=== PATIENT | female | born 1935 | race Caucasian/White ===

== ENCOUNTER 2018-03-24 16:34 | Emergency (ER) | payer MEDICARE, MEDICAID ==
[2018-03-24] MEDS ORDERED: Ibuprofen 200 MG TAB ONE (17:40)
--- NOTE | 2018-03-24 18:03 | RAD ---
LEFT WRIST THREE VIEWS: 03/24/18 HISTORY: Fall, left wrist pain. FINDINGS/IMPRESSION: There is a fracture involving the distal radius with minimal displacement. There is also fracture inv olving the ulnar styloid. POS: [place]
== END 2018-03-24 19:12 | disposition home or self-care (01) ==
LOC: ERS 16:34
DX: S52.502A Unspecified fracture of the lower end of left radius, initial encounter for closed fracture (principal); Y93.02 Activity, running; E11.9 Type 2 diabetes mellitus without complications; E03.9 Hypothyroidism, unspecified; E78.5 Hyperlipidemia, unspecified; I10 Essential (primary) hypertension; Z79.82 Long term (current) use of aspirin; Z79.84 Long term (current) use of oral hypoglycemic drugs; Z79.899 Other long term (current) drug therapy; W18.30XA Fall on same level, unspecified, initial encounter
CPT/HCPCS: 29125

== ENCOUNTER 2019-01-12 10:20 | Emergency (ER) | payer MEDICARE, MEDICAID ==
--- NOTE | 2019-01-12 11:04 | RAD ---
2 VIEWS LEFT HIP: Date: 01/12/19 INDICATION: Fall with left hip pain. FINDINGS: There is mild degenerative arthrosis of the left hip. There is degenerative changes involving the lef t SI joint. There is diffuse osteopenia. There is prominent soft tissue swelling overlying the left h ip. IMPRESSION: No definite displaced fracture seen. Large left hip soft tissue hematoma. POS: [facility]
== END 2019-01-12 11:42 | disposition home or self-care (01) ==
LOC: ERS 10:20
DX: S70.02XA Contusion of left hip, initial encounter (principal); F03.90 Unspecified dementia, unspecified severity, without behavioral disturbance, psychotic disturbance, mood disturbance, and anxiety; F17.220 Nicotine dependence, chewing tobacco, uncomplicated; E78.5 Hyperlipidemia, unspecified; I10 Essential (primary) hypertension; Z79.899 Other long term (current) drug therapy; Z79.82 Long term (current) use of aspirin; Z79.84 Long term (current) use of oral hypoglycemic drugs; W01.0XXA Fall on same level from slipping, tripping and stumbling without subsequent striking against object, initial encounter

== ENCOUNTER 2020-09-16 20:59 | Inpatient (IN) | payer MEDICARE, MEDICAID ==
--- NOTE | 2020-09-16 21:37 | RAD ---
Portable upright frontal chest radiograph: 09/16/2020 COMPARISON: 06/08/2018 HISTORY: Dyspnea, desaturation FINDINGS: Inspiration is shallow. There is elevation of the right hemidiaphragm. There are postoperat celeste clips in the right upper quadrant. There is increased linear interstitial density in the perihilar regions and left lung base with patch y nonspecific right basilar airspace disease suggesting nonspecific infectious pneumonitis or aspiration. Covid 19 cannot be excluded in the proper clinical setting. IMPRESSION: Linear interstitial density in the perihilar regions with superimposed nonspecific left b asilar airspace disease. Recommend follow-up imaging following treatment. Please see above discussion.
[2020-09-16 21:44] LABS: #Lymphocytes 2.1 thou/uL (1.20-3.40); #Monocytes 0.1 thou/uL (0.11-0.59); %Basophils 0.5 % (0.0-1.0); %Eosinophils 0.1 % (0.0-10.0); %Lymphocytes 25.4 % (21.0-51.0); %Monocytes 1.3 % (0.0-10.0); %Neutrophils 72.7 % (42.0-75.0); Hemoglobin 11.5 g/dL (12.0-16.0); Mean Corpuscular HGB CONC 31.5 g/dL (32.0-36.0); Mean Platelet Volume 8.2 fL (7.4-10.4); Platelet Count 145 thou/uL (130-400); RBC Distribution Width 14.4 % (11.5-14.5); White Blood Cell (WBC) Count 8.2 thou/uL (4.8-10.8)
[2020-09-16 21:50] LABS: INR-International Normal Ratio 1.2; PTT 30.5 sec (22.9-36.1); Prothrombin Time 15.3 sec (12.0-14.7)
[2020-09-16 22:13] LABS: ALT (SGPT) 37 U/L (8-55); AST (SGOT) 57 U/L (5-34); Albumin 3.2 g/dL (3.4-4.8); Alkaline Phosphatase 104 U/L (40-110); Anion Gap 19 mmol/L (10-20); BUN (Urea Nitrogen) 46 mg/dL (9.8-20.1); Bilirubin, Total 0.3 mg/dL (0.2-1.2); Calc. Creatinine Clearance 0 mL/min (70-130); Calcium 8.8 mg/dL (7.8-10.44); Carbon Dioxide 24 mmol/L (23-31); Chloride 117 mmol/L (98-107); Globulin 4.1 g/dL (2.4-3.5); Glucose 327 mg/dL (83-110); Protein, Total 7.3 g/dL (6.0-8.3); Sodium 156 mmol/L (136-145)
[2020-09-16] MEDS ORDERED: cefTRIAXone\\ROCEPHIN 1 GM VIAL ONE (22:14)
[2020-09-16 22:23] LABS: Bacteria/HPF 4+ HPF (None Seen); Bilirubin Negative (Negative); Blood, Urine Trace (Negative); Clarity Turbid (Clear); Glucose, Urine (Dipstick) Normal (Negative); Ketone, Urine Negative (Negative); Leukocyte 500 Leu/uL (Negative); Nitrite Negative (Negative); Protein, Urine (Dipstick) 100 mg/dL (Neg-Trace); RBC/HPF 21-50 HPF (0-3); Squamous Epithelial 0-3 HPF (0-3); Transitional Epithelial 0-3 HPF (None Seen); Urobilinogen Normal mg/dL (Less than 2); WBC/HPF Greater than 50 HPF (0-3); pH, Urine 5.5 (5.0-9.0)
[2020-09-16 22:32] LABS: CKMB 0.6 ng/mL (0-6.6)
[2020-09-17] MEDS ORDERED: Azithromycin 500 MG VIAL ONE (00:35)
[2020-09-17 01:10] LABS: Lactic Acid 3.3 mmol/L (0.5-2.2)
[2020-09-17] MEDS ORDERED: Dextrose 50% Abboject 50 ML SYRINGE SLOW IVP PRN (04:11)
[2020-09-17] MEDS ORDERED: Dextrose 5% in Water 1,000 ML IV PRN (04:11)
--- NOTE | 2020-09-17 05:07 | HP ---
REASON FOR ADMISSION: Increased oxygen demand. HISTORY OF PRESENT ILLNESS: This is an 85-year-old female patient, who is a retirement resident and has severe Alzheimer disease, was sent from the retirement because she is requiring more oxygen. She is known to have COVID-19. The patient is nonverbal, unable to provide much information, once she arrived to the ER, she was tachycardic and on a non-rebreather. The patient is at baseline fairly responsive. She was admitted to the COVID unit. When I went to see her, she appeared to be comfortable, though requiring high-flow oxygen, did not appear tachypneic. PAST MEDICAL HISTORY: 1. Dysphagia. 2. Alzheimer disease. 3. Diabetes. 4. Anxiety disorder. 5. High cholesterol. 6. Hypothyroidism. 7. High blood pressure. SOCIAL HISTORY: Unable to obtain due to her dementia. FAMILY HISTORY: Unable to obtain. REVIEW OF SYSTEMS: Unable to obtain. PHYSICAL EXAMINATION: GENERAL: She is awake. She does not appear in distress, but she is nonverbal. VITAL SIGNS: Her blood pressure is 141/81, heart rate of 104, saturating 96% on 40 L high-flow oxygen, 80% FiO2. HEENT: Head is nontraumatic, normocephalic. Pupils are equal and reactive. Extraocular movements are intact. Nonicteric sclerae. Well-injected conjunctivae. Oral mucosa normal. Nasal mucosa normal. NECK: Supple. No adenopathy. No murmur. Thyroid is not palpable. Trachea is midline. No supraclavicular adenopathy. HEART: S1 and S2, regular. No murmur. No gallops. No friction rubs. No displacement on PMI. LUNGS: Poor inspiratory effort. ABDOMEN: Bowel sounds are positive. Nontender abdomen. EXTREMITIES: No lower extremity edema. No cyanosis. NEURO: Unable to fully assess. LABORATORY DATA: Blood work shows WBC of 8.2; hemoglobin 11.5, previously 9.7 in 2019; MCV 102. INR 1.2. Sodium 156, potassium 4, bicarb of 24. BUN of 46; creatinine 1.63, three years ago creatinine was 0.68. Troponin 0.047. Urinalysis positive for infection. A chest x-ray shows linear interstitial density in the perihilar regions with superimposed nonspecific left basilar airspace disease. EKG shows sinus tachycardia per my read. ASSESSMENT AND PLAN: This is an 85-year-old female patient, presenting with increased need for oxygen. She is known to have COVID-19, most likely she has COVID pneumonia. Also, she is hypernatremic, most likely due to poor fluid intake and also she has urinary tract infection. Neurology: The patient has severe advanced Alzheimer disease. Continue to monitor from that standpoint. Pulmonary: The patient most likely has COVID pneumonia. We will have her on IV Decadron. For her UTI, she will be on IV Rocephin. For her hypernatremia, we will start her on half NS, recheck her sodium later on, and adjust accordingly. For DVT prophylaxis, she will be on heparin subcutaneously. For her diabetes, she will be on insulin sliding scale. The patient does have an out of the hospital do not resuscitate. We will continue with that order. Job ID: [id number]
[2020-09-17] MEDS: Sodium Chloride 0.45% 1,000 ML IV SCH ×2 (05:51→17:34)
[2020-09-17] MEDS: Insulin Regular 300 UNITS/3 ML VIAL SC PRN (06:58)
[2020-09-17 08:36] LABS: Anion Gap 13 mmol/L (10-20); BUN (Urea Nitrogen) 38 mg/dL (9.8-20.1); Calc. Creatinine Clearance 30 mL/min (70-130); Carbon Dioxide 24 mmol/L (23-31); Chloride 121 mmol/L (98-107); Glucose 363 mg/dL (83-110); Potassium 3.5 mmol/L (3.5-5.1); Sodium 154 mmol/L (136-145)
[2020-09-17 08:45] LABS: Troponin I 0.052 ng/mL (< 0.028)
[2020-09-17 08:52] LABS: MDiff Complete? YES; Platelet Morphology Comment Appears Adequate; Polychromasia SLIGHT = 2-3 cells (100X) (0-2/hpf)
[2020-09-17 08:53] LABS: #Basophils 0.1 thou/uL (0.0-0.2); #Lymphocytes 1.4 thou/uL (1.20-3.40); #Monocytes 0.1 thou/uL (0.11-0.59); #Neutrophils 6.4 thou/uL (1.40-6.50); %Basophils 1.2 % (0.0-1.0); %Eosinophils 0.2 % (0.0-10.0); %Lymphocytes 17.2 % (21.0-51.0); %Monocytes 1.5 % (0.0-10.0); %Neutrophils 79.8 % (42.0-75.0); Hemoglobin 9.4 g/dL (12.0-16.0); Mean Corpuscular HGB CONC 31.1 g/dL (32.0-36.0); Mean Corpuscular Hemoglobin 31.2 pg (27.0-31.0); Mean Platelet Volume 7.9 fL (7.4-10.4); Platelet Count 119 thou/uL (130-400); RBC Distribution Width 14.4 % (11.5-14.5); Red Blood Cell (RBC) Count 3.02 mill/uL (4.20-5.40); White Blood Cell (WBC) Count 8.1 thou/uL (4.8-10.8)
[2020-09-17] MEDS ORDERED: Enoxaparin Sodium 40 MG/0.4 ML SYRINGE SC SCH (09:00)
[2020-09-17] MEDS: Heparin 5,000 UNITS/ML VIAL SC SCH ×2 (09:34→22:00)
[2020-09-17] MEDS: Dexamethasone 4 mg/ml Vial SLOW IVP SCH (09:34)
[2020-09-17] MEDS ORDERED: D5W-AA 4.25% with LYTES 1,000 ML BAG IV SCH (20:00)
[2020-09-17] MEDS ORDERED: Famotidine/PF 20 mg/2ml Vial SLOW IVP SCH (21:00)
[2020-09-17] MEDS: cefTRIAXone\\ROCEPHIN 1 GM in Sodium Chloride 0.9% 100 ML IVPB SCH (22:00)
[2020-09-17] MEDS ORDERED: Acetaminophen 325 MG TAB PO PRN (22:41)
[2020-09-17] MEDS ORDERED: Acetaminophen 650 MG Suppository PR PRN (22:41)
[2020-09-17] MEDS ORDERED: Acetaminophen 650 MG/20.3 ML UDCUP PO PRN (22:41)
[2020-09-18 00:10] VITALS: BP 133/81
--- NOTE | 2020-09-18 01:18 | PDOC.EVN ---
Event Note - Event Note Event Note: Nursing called, patient tachypneic and hypoxic, Sp02 low 80s, high 70s on high flow NC. Will place order for bipap, STAT ABG and transfer to IMCU.
[2020-09-18 01:42] LABS: Actual Bicarbonate (HCO3a) 17.1 mEq/L (22-28); Analyzer IN Cardio OR; Base Excess (BEa) -7.1 mEq/L (-2.0 to +3.0); CO2 Tension 30.4 mmHg (35.0-45.0); Carboxyhemoglobin (COHb) 0.1 gm% (0.0-3.0); Hemoglobin (Hb) 10.7 g/dL (12.0-16.0); Potassium - ABG Lab 3.88 mmol/L (3.70-5.30); pH, Arterial 7.37 (7.35-7.45)
[2020-09-18 01:44] LABS: O2 Tension (PaO2), arterial 52.3 mmHg (> 60.0)
[2020-09-18 01:45] LABS: Puncture Site RRA
[2020-09-18] MEDS ORDERED: Morphine 2 MG/ML VIAL SLOW IVP SCH (02:00)
[2020-09-18] MEDS ORDERED: Lorazepam 2 MG/ML VIAL SLOW IVP SCH (02:30)
[2020-09-18 04:18] LABS: Hemoglobin A1c 8.3 % (4.0-6.0)
[2020-09-18 04:22] LABS: #Monocytes 0.2 thou/uL (0.11-0.59); #Neutrophils 10.3 thou/uL (1.40-6.50); %Basophils 0.1 % (0.0-1.0); %Eosinophils 0.1 % (0.0-10.0); %Lymphocytes 8.6 % (21.0-51.0); %Monocytes 1.7 % (0.0-10.0); %Neutrophils 89.6 % (42.0-75.0); Mean Corpuscular HGB CONC 31.8 g/dL (32.0-36.0); Mean Corpuscular Hemoglobin 31.4 pg (27.0-31.0); Mean Corpuscular Volume 98.8 fL (78.0-98.0); Mean Platelet Volume 8.6 fL (7.4-10.4); Platelet Count 119 thou/uL (130-400); RBC Distribution Width 14.4 % (11.5-14.5); Red Blood Cell (RBC) Count 3.18 mill/uL (4.20-5.40); White Blood Cell (WBC) Count 11.5 thou/uL (4.8-10.8)
[2020-09-18 04:29] LABS: Anion Gap 17 mmol/L (10-20); Carbon Dioxide 20 mmol/L (23-31); Chloride 119 mmol/L (98-107); Potassium 4.3 mmol/L (3.5-5.1); Sodium 152 mmol/L (136-145)
[2020-09-18 04:30] LABS: ALT (SGPT) 35 U/L (8-55); AST (SGOT) 55 U/L (5-34); Albumin 2.8 g/dL (3.4-4.8); Alkaline Phosphatase 97 U/L (40-110); BUN (Urea Nitrogen) 42 mg/dL (9.8-20.1); Bilirubin, Total 0.2 mg/dL (0.2-1.2); Calc. Creatinine Clearance 28 mL/min (70-130); Calcium 8.5 mg/dL (7.8-10.44); Globulin 3.6 g/dL (2.4-3.5); Glucose 422 mg/dL (83-110); Magnesium 1.9 mg/dL (1.6-2.6); Phosphorus 2.8 mg/dL (2.3-4.7); Protein, Total 6.4 g/dL (6.0-8.3)
[2020-09-18 05:32] LABS: SARS-CoV-2 by NAA DETECTED (NotDetected)
[2020-09-18 05:33] LABS: SARS-CoV-2 MS2 Positive; SARS-CoV-2 N Gene Positive; SARS-CoV-2 S Gene Positive; SARS-CoV-2 orf1ab Positive
[2020-09-18] MEDS: Insulin Regular 300 UNITS/3 ML VIAL SC PRN ×2 (06:08→13:36)
[2020-09-18] MEDS ORDERED: Bisacodyl 10 MG SUPP PR PRN (07:49)
[2020-09-18] MEDS ORDERED: Cepastat Lozenges 1 LOZ PO PRN (07:49)
[2020-09-18] MEDS ORDERED: Ondansetron PF 4 MG/2 ML Vial IVP PRN (07:49)
[2020-09-18] MEDS ORDERED: Promethazine HCl 25 MG SUPP PR PRN (07:49)
[2020-09-18] MEDS ORDERED: Sodium Chloride 0.65% Nasal 44 ML BOT EA NARE PRN (07:49)
[2020-09-18] MEDS ORDERED: Acetaminophen 650 MG Suppository PR PRN (07:49)
[2020-09-18] MEDS ORDERED: Loratadine 10 MG TAB PO PRN (07:49)
[2020-09-18] MEDS ORDERED: Ondansetron ODT 4 MG TAB SL PRN (07:49)
[2020-09-18] MEDS ORDERED: Benzonatate 100 MG CAP PO PRN (07:49)
[2020-09-18] MEDS ORDERED: Acetaminophen 500 MG TAB PO PRN (07:49)
[2020-09-18] MEDS ORDERED: hydrALAZINE 20 MG/ML VIAL SLOW IVP PRN (07:49)
[2020-09-18] MEDS ORDERED: Dextrose 5 %-0.45 % NaCl 1,000 ML IV SCH (08:00)
[2020-09-18] MEDS: Dexamethasone 4 mg/ml Vial SLOW IVP SCH (08:10)
[2020-09-18] MEDS: Heparin 5,000 UNITS/ML VIAL SC SCH ×2 (08:10→21:01)
[2020-09-18] MEDS: Pantoprazole 40 MG VIAL IVP SCH (08:11)
[2020-09-18] MEDS: D5W-AA 4.25% with LYTES 1,000 ML BAG IV SCH (09:50)
[2020-09-18] MEDS ORDERED: Morphine 4 MG/ML VIAL ONE (10:14)
[2020-09-18] MEDS: Lorazepam 2 MG/ML VIAL SLOW IVP PRN (10:20)
--- NOTE | 2020-09-18 10:28 | PDOC.HOSPP ---
- Subjective Encounter Date: 09/18/20 Encounter Time: 09:45 non-verbal Subjective: This morning patient was on BiPAP, patient is not able to provide any history, she is completely altered,Patient seen and examined bedside today, last night patient became more tachypneic and hypoxic, she was transferred to [facility], patient was started on BiPAP, - Objective Vital Signs & Weight: Vital Signs (12 hours) Temp Pulse Resp BP Pulse Ox 09/18/20 08:00 98.1 F 96 09/18/20 07:10 14 94 L 09/18/20 04:00 98.2 F 09/18/20 02:00 95 09/18/20 01:31 88 L 09/18/20 00:00 98.7 F 80 28 H 133/81 90 L Weight Weight 125 lb 11.2 oz Most Recent Monitor Data Heart Rate from ECG 80 NIBP 146/75 NIBP BP-Mean 98 Respiration from ECG 25 SpO2 93 I&O: 09/17/20 09/18/20 09/19/20 06:59 06:59 06:59 Intake Total 2476 Balance 2476 Result Diagrams: 09/18/20 03:40 09/18/20 03:40 Additional Labs: Accuchecks 09/18/20 09/18/20 09/17/20 05:53 00:06 17:35 POC Glucose 367 H 278 H 238 H 09/17/20 11:58 POC Glucose 188 H Radiology Reviewed by me: Yes EKG Reviewed by me: Yes Hospitalist ROS - Review of Systems ROS unobtainable: due to mental status - Medication Medications: Active Medications Generic Name Dose Route Start Last Admin Trade Name Pastor PRN Reason Stop Dose Admin Amino Acids/Electrolytes/Dextrose 1,000 ml 09/18/20 07:55 09/18/20 09:50 D5w-Aa 4.25% With Lytes 1,000 Ml Bag IV 1,000 ml INF RAMONE Administration Dexamethasone 6 mg 09/17/20 09:00 09/18/20 08:10 Dexamethasone 4 Mg/Ml Vial SLOW IVP 6 mg DAILY RAMONE Administration Heparin Sodium (Porcine) 5,000 units 09/17/20 09:00 09/18/20 08:10 Heparin 5,000 Units/Ml Vial SC 5,000 units BID RAMONE Administration Ceftriaxone Sodium 1 gm/ 100 mls @ 200 mls/hr 09/17/20 22:00 12/17/20 22:00 Sodium Chloride IVPB 100 mls Q24HR RAMONE Administration Insulin Human Regular 0 units 09/17/20 04:11 09/18/20 06:08 Insulin Regular 300 Units/3 Ml Vial SC 6 unit .MILD SLIDING SCALE PRN Administration Mild Correctional Scale Lorazepam 1 mg 09/18/20 10:16 09/18/20 10:20 Lorazepam 2 Mg/Ml Vial SLOW IVP 1 mg Q4H PRN Administration Anxiety/Agitation Pantoprazole Sodium 40 mg 09/18/20 09:00 09/18/20 08:11 Pantoprazole 40 Mg Vial IVP 40 mg DAILY RAMONE Administration - Exam General Appearance: NAD, ill appearing General - other findings: On BiPAP Eye: PERRL ENT: normocephalic atraumatic, no oropharyngeal lesions, dry oral mucosa Neck: supple, symmetric, no JVD Heart: RRR, no murmur, no gallops, no rubs Respiratory: no ronchi Respiratory - other findings: Bilateral coarse breath sounds predominantly on the left side lower part Gastrointestinal: soft, non-distended, normal bowel sounds Extremities: no clubbing, no edema Skin: normal turgor Neurological - other findings: Unable to assess due to dementia Musculoskeletal: normal tone Psychiatric: normal affect Hosp A/P (1) Acute hypoxemic respiratory failure Code(s): J96.01 - ACUTE RESPIRATORY FAILURE WITH HYPOXIA Status: Acute (2) Pneumonia due to COVID-19 virus Code(s): U07.1 - COVID-19; J12.89 - OTHER VIRAL PNEUMONIA Status: Acute (3) Toxic metabolic encephalopathy Code(s): G92 - TOXIC ENCEPHALOPATHY Status: Acute (4) Sepsis due to COVID-19 Code(s): U07.1 - COVID-19; A41.89 - OTHER SPECIFIED SEPSIS Status: Acute (5) Acute kidney failure Status: Acute (6) Hypernatremia Code(s): E87.0 - HYPEROSMOLALITY AND HYPERNATREMIA Status: Acute (7) Dehydration Code(s): E86.0 - DEHYDRATION Status: Acute (8) Folate deficiency Code(s): E53.8 - DEFICIENCY OF OTHER SPECIFIED B GROUP VITAMINS Status: Acute (9) Lactic acidosis Code(s): E87.2 - ACIDOSIS Status: Acute (10) Type 2 myocardial infarction Code(s): I21.A1 - MYOCARDIAL INFARCTION TYPE 2 Status: Acute (11) UTI (urinary tract infection) Status: Acute Qualifiers: Urinary tract infection type: acute cystitis Hematuria presence: without hematuria Qualified Code(s): N30.00 - Acute cystitis without hematuria (12) Hypothyroidism Code(s): E03.9 - HYPOTHYROIDISM, UNSPECIFIED Status: Chronic (13) HTN (hypertension) Code(s): I10 - ESSENTIAL (PRIMARY) HYPERTENSION Status: Chronic (14) Alzheimer's dementia Code(s): G30.9 - ALZHEIMER'S DISEASE, UNSPECIFIED; F02.80 - DEMENTIA IN OTH DISEASES CLASSD ELSWHR W/O BEHAVRL DISTURB Status: Chronic (15) DM2 (diabetes mellitus, type 2) Status: Chronic (16) Macrocytic anemia Code(s): D53.9 - NUTRITIONAL ANEMIA, UNSPECIFIED Status: Chronic (17) Thrombocytopenia Code(s): D69.6 - THROMBOCYTOPENIA, UNSPECIFIED Status: Acute - Plan old records reviewed/req, plan discussed w/ family, continue antibiotics, respiratory therapy, DVT proph w/heparin Consults: Palliative Care Plan Palliative care consulted for goal of care Continue PPN for nutritional support Add multivitamin through PPN Continue empiric Rocephin Follow-up on culture result We will repeat labs tomorrow S/p convalescent plasma Medication reviewed and continued per symptomatic and supportive care Prognosis poor Tomorrow we will repeat labs We will consult pulmonary because IMCU patient
--- NOTE | 2020-09-18 11:24 | CON ---
DATE OF CONSULTATION: 09/18/2020 CONSULTING PHYSICIAN: Hospitalist Group. REASON FOR CONSULTATION: COVID-19 pneumonia and respiratory failure. HISTORY OF PRESENT ILLNESS: This is an 85-year-old female who presented to the Hospitalist Service last night with COVID-19 pneumonia. She has severe Alzheimer disease. She BiPAP that she was put on last night and wants it taken off. PAST MEDICAL HISTORY: 1. Alzheimer's. 2. Diabetes mellitus. 3. Anxiety. 4. Hyperlipidemia. 5. Hypothyroidism. 6. Hypertension. PAST SURGICAL HISTORY: Not reported. SOCIAL HISTORY: Unknown. FAMILY MEDICAL HISTORY: Unknown. REVIEW OF SYSTEMS: Cannot obtain. ALLERGIES: DONEPEZIL. CURRENT INPATIENT MEDICATIONS: Reviewed. See chart. PHYSICAL EXAMINATION: VITAL SIGNS: O2 saturation in the low 90s on BiPAP and in the 70s off BiPAP. Temperature 98.1, pulse 80, blood pressure 146/75. GENERAL: This lady is flailing throughout the bed, trying to pull the mask off. Looks very uncomfortable. HEENT: Unremarkable. NECK: No JVD. LUNGS: With crackles bilaterally. CARDIAC: S1, S2. Tachycardic. ABDOMEN: Soft and nontender. EXTREMITIES: No edema. DIAGNOSTIC STUDIES: Her x-ray shows bilateral infiltrates consistent with COVID-19 pneumonia. LABORATORY DATA: White blood cell count 11.5, hematocrit 31.4, and platelet count 119. PH of 7.37, pCO2 of 30, pO2 of 52. Sodium 152, potassium 4.3, chloride 119, CO2 of 20, BUN 42, creatinine 1.3, and glucose 422. ASSESSMENT: 1. COVID-19 pneumonia. 2. DNR status. 3. Acute hypoxic respiratory failure. 4. Severe Alzheimer disease. PLAN: This lady needs to be kept comfortable with morphine and Ativan. She will from the COVID-19 pneumonia shortly. There is nothing that we can do to change this. Focus should be on comfort. Job ID: [id number]
[2020-09-18] MEDS: cefTRIAXone\\ROCEPHIN 1 GM in Sodium Chloride 0.9% 100 ML IVPB SCH (22:21)
[2020-09-18] MEDS: Morphine 4 MG/ML VIAL SLOW IVP PRN (23:57)
[2020-09-19] MEDS: Morphine 4 MG/ML VIAL SLOW IVP PRN ×2 (03:57→20:22)
[2020-09-19] MEDS: Insulin Regular 300 UNITS/3 ML VIAL SC PRN ×3 (06:38→23:40)
[2020-09-19] MEDS: Dexamethasone 4 mg/ml Vial SLOW IVP SCH (07:36)
[2020-09-19] MEDS: Heparin 5,000 UNITS/ML VIAL SC SCH ×2 (07:36→20:22)
[2020-09-19] MEDS: Lorazepam 2 MG/ML VIAL SLOW IVP PRN (07:36)
[2020-09-19] MEDS: Pantoprazole 40 MG VIAL IVP SCH (07:36)
[2020-09-19 09:12] LABS: #Monocytes 0.3 thou/uL (0.11-0.59); #Neutrophils 15.3 thou/uL (1.40-6.50); %Eosinophils 0.1 % (0.0-10.0); %Lymphocytes 6.1 % (21.0-51.0); %Monocytes 1.9 % (0.0-10.0); Hemoglobin 10.7 g/dL (12.0-16.0); Mean Corpuscular HGB CONC 31.6 g/dL (32.0-36.0); Mean Corpuscular Hemoglobin 30.9 pg (27.0-31.0); Mean Corpuscular Volume 97.7 fL (78.0-98.0); Mean Platelet Volume 9.3 fL (7.4-10.4); Platelet Count 127 thou/uL (130-400); RBC Distribution Width 14.5 % (11.5-14.5); Red Blood Cell (RBC) Count 3.46 mill/uL (4.20-5.40); White Blood Cell (WBC) Count 16.6 thou/uL (4.8-10.8)
[2020-09-19 09:15] LABS: ALT (SGPT) 30 U/L (8-55); AST (SGOT) 43 U/L (5-34); Albumin 2.7 g/dL (3.4-4.8); Alkaline Phosphatase 113 U/L (40-110); Anion Gap 19 mmol/L (10-20); BUN (Urea Nitrogen) 63 mg/dL (9.8-20.1); Bilirubin, Total 0.2 mg/dL (0.2-1.2); Calc. Creatinine Clearance 26 mL/min (70-130); Calcium 8.6 mg/dL (7.8-10.44); Carbon Dioxide 19 mmol/L (23-31); Chloride 124 mmol/L (98-107); Globulin 3.1 g/dL (2.4-3.5); Glucose 352 mg/dL (83-110); Potassium 4.8 mmol/L (3.5-5.1); Protein, Total 5.8 g/dL (6.0-8.3); Sodium 157 mmol/L (136-145)
[2020-09-19] MEDS: D5W-AA 4.25% with LYTES 1,000 ML BAG IV SCH (10:19)
--- NOTE | 2020-09-19 11:43 | PRG ---
DATE OF SERVICE: 09/19/2020 SUBJECTIVE: This patient remains on BiPAP. OBJECTIVE: VITAL SIGNS: Temperature 98.6, pulse 81, respirations 23, O2 saturation 99%, blood pressure 102/70. LUNGS: She has diminished breath sounds bilaterally and is confused. LABORATORY DATA: White blood cell count 16.6, hematocrit 33.8, and platelet count 127. Sodium 157, potassium 4.8, chloride 124, CO2 of 19, BUN 63, creatinine 1.4, glucose 359. ASSESSMENT: 1. COVID-19 infection with pneumonia and acute respiratory failure, requiring noninvasive ventilation. 2. Advanced age. 3. Alzheimer type dementia. 4. Hypernatremia. RECOMMENDATIONS: This lady will not survive the illness, and I would recommend hospice/palliative care. I have nothing to add to the current orders on the chart. Job ID: [id number]
--- NOTE | 2020-09-19 15:23 | EKG ---
Test Reason : Blood Pressure : / mmHG Vent. Rate : 102 BPM Atrial Rate : 102 BPM P-R Int : 156 ms QRS Dur : 068 ms QT Int : 360 ms P-R-T Axes : 068 -48 151 degrees QTc Int : 469 ms Sinus tachycardia Left anterior fascicular block Cannot rule out Inferior infarct (masked by fascicular block?) , age undetermined Anterolateral infarct , age undetermined Abnormal ECG Confirmed by NEREIDA MITCHELL, BRITTANY ([id number]), editor index DARLENE HILL ([id number]) on 09/19/2020 3:22:53 PM Referred By: Confirmed By:BRITTANY PADRON MD
--- NOTE | 2020-09-19 15:54 | PDOC.HOSPP ---
- Subjective Encounter Date: 09/19/20 Subjective: The patient is lethargic. She is on BiPAP. - Objective Vital Signs & Weight: Vital Signs (12 hours) Temp Pulse Ox 09/19/20 12:00 98.4 F 09/19/20 08:00 98.6 F 95 09/19/20 04:00 98.4 F Weight Weight 125 lb 11.2 oz Most Recent Monitor Data Heart Rate from ECG 63 NIBP 102/66 NIBP BP-Mean 78 Respiration from ECG 16 SpO2 98 I&O: 09/18/20 09/19/20 09/20/20 06:59 06:59 06:59 Intake Total 2476 528 Output Total 350 Balance 2476 178 Result Diagrams: 09/19/20 08:19 09/19/20 08:19 Additional Labs: Accuchecks 09/19/20 09/19/20 09/19/20 12:25 06:27 00:06 POC Glucose 353 H 324 H 211 H 09/18/20 17:46 POC Glucose 276 H Hospitalist ROS - Medication Medications: Active Medications Generic Name Dose Route Start Last Admin Trade Name Freq PRN Reason Stop Dose Admin Amino Acids/Electrolytes/Dextrose 1,000 ml 09/18/20 07:55 09/19/20 10:19 D5w-Aa 4.25% With Lytes 1,000 Ml Bag IV 1,000 ml INF RAMONE Administration Dexamethasone 6 mg 09/17/20 09:00 09/19/20 07:36 Dexamethasone 4 Mg/Ml Vial SLOW IVP 6 mg DAILY RAMONE Administration Heparin Sodium (Porcine) 5,000 units 09/18/20 21:00 09/19/20 07:36 Heparin 5,000 Units/Ml Vial SC 5,000 units Q12HR RAMONE Administration Ceftriaxone Sodium 1 gm/ 100 mls @ 200 mls/hr 09/17/20 22:00 09/18/20 22:21 Sodium Chloride IVPB 100 mls Q24HR RAMONE Administration Insulin Human Regular 0 units 09/17/20 04:11 09/19/20 06:38 Insulin Regular 300 Units/3 Ml Vial SC 5 unit .MILD SLIDING SCALE PRN Administration Mild Correctional Scale Lorazepam 1 mg 09/18/20 10:16 09/19/20 07:36 Lorazepam 2 Mg/Ml Vial SLOW IVP 1 mg Q4H PRN Administration Anxiety/Agitation Morphine Sulfate 4 mg 09/18/20 10:16 09/19/20 03:57 Morphine 4 Mg/Ml Vial SLOW IVP 4 mg Q4H PRN Administration dyspnea Pantoprazole Sodium 40 mg 09/18/20 09:00 09/19/20 07:36 Pantoprazole 40 Mg Vial IVP 40 mg DAILY RAMONE Administration - Exam General Appearance: ill appearing Neck: supple Heart: RRR Respiratory: rhonchi, tachypneic Extremities: no cyanosis, no clubbing Hosp A/P (1) Acute hypoxemic respiratory failure Code(s): J96.01 - ACUTE RESPIRATORY FAILURE WITH HYPOXIA Status: Acute (2) Pneumonia due to COVID-19 virus Code(s): U07.1 - COVID-19; J12.89 - OTHER VIRAL PNEUMONIA Status: Acute (3) Alzheimer's dementia Code(s): G30.9 - ALZHEIMER'S DISEASE, UNSPECIFIED; F02.80 - DEMENTIA IN OTH DISEASES CLASSD ELSWHR W/O BEHAVRL DISTURB Status: Chronic (4) DM2 (diabetes mellitus, type 2) Status: Chronic - Plan The patient is terminally ill. She is currently on BiPAP due to severe hypoxia related to COVID-19. She is DNR. Comfort care was suggested due to the grim prognosis.
[2020-09-19] MEDS: cefTRIAXone\\ROCEPHIN 1 GM in Sodium Chloride 0.9% 100 ML IVPB SCH (21:12)
[2020-09-20 04:36] VITALS: BMI 20.5
[2020-09-20] MEDS: Morphine 4 MG/ML VIAL SLOW IVP PRN ×2 (06:00→19:26)
[2020-09-20] MEDS: Pantoprazole 40 MG VIAL IVP SCH (08:01)
[2020-09-20] MEDS: Heparin 5,000 UNITS/ML VIAL SC SCH ×2 (08:01→21:43)
[2020-09-20] MEDS: Dexamethasone 4 mg/ml Vial SLOW IVP SCH (08:01)
[2020-09-20] MEDS: Lorazepam 2 MG/ML VIAL SLOW IVP PRN (08:02)
--- NOTE | 2020-09-20 11:08 | PRG ---
DATE OF SERVICE: 09/20/2020 SUBJECTIVE: The patient is on BiPAP for COVID-19 pneumonia. She appears about the same. She has been given copious amounts of pain and anxiety medicine to limit her discomfort. She had no labs done today. OBJECTIVE: VITAL SIGNS: Temperature 98.6, pulse 67, blood pressure 98/61, O2 sat 95%. HEENT: Unremarkable. LUNGS: Diffuse crackles. CARDIAC: S1 and S2, regular. ABDOMEN: Soft. EXTREMITIES: No edema. ASSESSMENT: 1. COVID-19 pneumonia. 2. Advanced age. 3. Alzheimer disease. PLAN: Again, I do not think she will survive this illness and I would recommend hospice/palliative care. Job ID: [id number]
[2020-09-20] MEDS: D5W-AA 4.25% with LYTES 1,000 ML BAG IV SCH (11:57)
[2020-09-20] MEDS: Insulin Regular 300 UNITS/3 ML VIAL SC PRN ×2 (18:42→23:31)
--- NOTE | 2020-09-20 19:01 | PDOC.HOSPP ---
- Subjective Encounter Date: 09/20/20 Subjective: Remains unresponsive on BIPAP. - Objective Vital Signs & Weight: Vital Signs (12 hours) Temp Pulse Ox 09/20/20 16:00 98.9 F 09/20/20 12:00 98.9 F 09/20/20 08:00 98.6 F 94 L Weight Weight 127 lb 4 oz Most Recent Monitor Data Heart Rate from ECG 66 NIBP 107/67 NIBP BP-Mean 80 Respiration from ECG 17 SpO2 96 I&O: 09/19/20 09/20/20 09/21/20 06:59 06:59 06:59 Intake Total 528 1360 840 Output Total 350 1050 450 Balance 178 310 390 Result Diagrams: 09/19/20 08:19 09/19/20 08:19 Additional Labs: Accuchecks 09/20/20 09/20/20 09/20/20 18:40 12:02 05:49 POC Glucose 416 H 247 H 202 H 09/19/20 23:42 POC Glucose 372 H Hospitalist ROS - Medication Medications: Active Medications Generic Name Dose Route Start Last Admin Trade Name Freq PRN Reason Stop Dose Admin Amino Acids/Electrolytes/Dextrose 1,000 ml 09/18/20 07:55 09/20/20 11:57 D5w-Aa 4.25% With Lytes 1,000 Ml Bag IV 1,000 ml INF RAMONE Administration Dexamethasone 6 mg 09/17/20 09:00 09/20/20 08:01 Dexamethasone 4 Mg/Ml Vial SLOW IVP 6 mg DAILY RAMONE Administration Heparin Sodium (Porcine) 5,000 units 09/18/20 21:00 09/20/20 08:01 Heparin 5,000 Units/Ml Vial SC 5,000 units Q12HR RAMONE Administration Ceftriaxone Sodium 1 gm/ 100 mls @ 200 mls/hr 09/17/20 22:00 09/19/20 21:12 Sodium Chloride IVPB 100 mls Q24HR RAMONE Administration Lorazepam 1 mg 09/18/20 10:16 09/20/20 08:02 Lorazepam 2 Mg/Ml Vial SLOW IVP 1 mg Q4H PRN Administration Anxiety/Agitation Morphine Sulfate 4 mg 09/18/20 10:16 09/20/20 06:00 Morphine 4 Mg/Ml Vial SLOW IVP 4 mg Q4H PRN Administration dyspnea Pantoprazole Sodium 40 mg 09/18/20 09:00 09/20/20 08:01 Pantoprazole 40 Mg Vial IVP 40 mg DAILY RAMONE Administration - Exam ENT: normocephalic atraumatic Heart: RRR Respiratory: tachypneic Hosp A/P (1) Acute hypoxemic respiratory failure Code(s): J96.01 - ACUTE RESPIRATORY FAILURE WITH HYPOXIA Status: Acute (2) Pneumonia due to COVID-19 virus Code(s): U07.1 - COVID-19; J12.89 - OTHER VIRAL PNEUMONIA Status: Acute (3) Alzheimer's dementia Code(s): G30.9 - ALZHEIMER'S DISEASE, UNSPECIFIED; F02.80 - DEMENTIA IN OTH DISEASES CLASSD ELSWHR W/O BEHAVRL DISTURB Status: Chronic (4) DM2 (diabetes mellitus, type 2) Status: Chronic - Plan The patient is terminally ill. She is currently on BiPAP due to severe hypoxia related to COVID-19. She is DNR. Comfort care was suggested due to the grim prognosis. Family to meet with palliative team tomorrow.
[2020-09-20] MEDS: cefTRIAXone\\ROCEPHIN 1 GM in Sodium Chloride 0.9% 100 ML IVPB SCH (21:42)
[2020-09-21] MEDS: D5W-AA 4.25% with LYTES 1,000 ML BAG IV SCH (02:40)
[2020-09-21] MEDS: Insulin Regular 300 UNITS/3 ML VIAL SC PRN (05:47)
--- NOTE | 2020-09-21 07:46 | PDOC.HOSPP ---
- Subjective Encounter Date: 09/21/20 Encounter Time: 07:45 Subjective: no distress, on BIPAP - Objective Vital Signs & Weight: Vital Signs (12 hours) Temp Pulse Ox 09/21/20 03:56 97.4 F L 09/20/20 23:51 97.6 F 09/20/20 20:00 97.4 F L 91 L Weight Weight 127 lb 4 oz Most Recent Monitor Data Heart Rate from ECG 86 NIBP 159/105 NIBP BP-Mean 123 Respiration from ECG 21 SpO2 95 I&O: 09/20/20 09/21/20 09/22/20 06:59 06:59 06:59 Intake Total 1360 1378 Output Total 1050 900 Balance 310 478 Result Diagrams: 09/19/20 08:19 09/19/20 08:19 Additional Labs: Accuchecks 09/21/20 09/20/20 09/20/20 05:21 23:30 18:40 POC Glucose 253 H 386 H 416 H 09/20/20 12:02 POC Glucose 247 H Hospitalist ROS - Medication Medications: Active Medications Generic Name Dose Route Start Last Admin Trade Name Freq PRN Reason Stop Dose Admin Amino Acids/Electrolytes/Dextrose 1,000 ml 09/18/20 07:55 09/21/20 02:40 D5w-Aa 4.25% With Lytes 1,000 Ml Bag IV 1,000 ml INF RAMONE Administration Dexamethasone 6 mg 09/17/20 09:00 09/20/20 08:01 Dexamethasone 4 Mg/Ml Vial SLOW IVP 6 mg DAILY RAMONE Administration Heparin Sodium (Porcine) 5,000 units 09/18/20 21:00 09/20/20 21:43 Heparin 5,000 Units/Ml Vial SC 5,000 units Q12HR RAMONE Administration Ceftriaxone Sodium 1 gm/ 100 mls @ 200 mls/hr 09/17/20 22:00 09/20/20 21:42 Sodium Chloride IVPB 100 mls Q24HR RAMONE Administration Insulin Human Regular 0 units 09/20/20 18:54 09/21/20 05:47 Insulin Regular 300 Units/3 Ml Vial SC 9 unit .AGGRESSIVE SLIDING PRN Administration Aggressive Correctional Scale Lorazepam 1 mg 09/18/20 10:16 09/20/20 08:02 Lorazepam 2 Mg/Ml Vial SLOW IVP 1 mg Q4H PRN Administration Anxiety/Agitation Morphine Sulfate 4 mg 09/18/20 10:16 09/20/20 19:26 Morphine 4 Mg/Ml Vial SLOW IVP 4 mg Q4H PRN Administration dyspnea Pantoprazole Sodium 40 mg 09/18/20 09:00 09/20/20 08:01 Pantoprazole 40 Mg Vial IVP 40 mg DAILY RAMONE Administration - Exam Neck: no JVD Heart: RRR, no murmur Respiratory - other findings: fine rales all macario Gastrointestinal: soft, non-tender, normal bowel sounds Extremities: no edema Hosp A/P (1) Acute hypoxemic respiratory failure Code(s): J96.01 - ACUTE RESPIRATORY FAILURE WITH HYPOXIA Status: Acute (2) Acute kidney failure Status: Acute Qualifiers: Acute renal failure type: unspecified Qualified Code(s): N17.9 - Acute kidney failure, unspecified (3) Pneumonia due to COVID-19 virus Code(s): U07.1 - COVID-19; J12.89 - OTHER VIRAL PNEUMONIA Status: Acute (4) Alzheimer's dementia Code(s): G30.9 - ALZHEIMER'S DISEASE, UNSPECIFIED; F02.80 - DEMENTIA IN OTH DISEASES CLASSD ELSWHR W/O BEHAVRL DISTURB Status: Chronic (5) DM2 (diabetes mellitus, type 2) Status: Chronic Qualifiers: Diabetes mellitus terminal worker insulin use: without terminal worker use Diabetes mellitus complication status: with kidney complications Diabetes mellitus complication detail: with other kidney complication Qualified Code(s): E11.29 - Type 2 diabetes mellitus with other diabetic kidney complication - Plan on BIPAp, cont iv steroids ACCU/SS palliative care discussion with family pending
[2020-09-21] MEDS: Morphine 4 MG/ML VIAL SLOW IVP PRN (07:56)
[2020-09-21] MEDS: Dexamethasone 4 mg/ml Vial SLOW IVP SCH (07:57)
[2020-09-21] MEDS: Heparin 5,000 UNITS/ML VIAL SC SCH (07:57)
[2020-09-21] MEDS: Pantoprazole 40 MG VIAL IVP SCH (07:57)
--- NOTE | 2020-09-21 09:38 | PRG ---
DATE OF SERVICE: 09/21/2020 SUBJECTIVE: The patient is doing poorly. She remains on BiPAP. PHYSICAL EXAMINATION: VITAL SIGNS: Temperature 97.6, pulse 76, blood pressure 135/82. HEENT: Unremarkable. NECK: No JVD. LUNGS: Coarse breath sounds. CARDIAC: S1 and S2, regular. ABDOMEN: Soft. EXTREMITIES: No edema. ASSESSMENT: 1. COVID pneumonia. 2. Advanced Alzheimer disease. PLAN: I do not see any hope for survival in this case. I would recommend Palliative/Hospice care. Job ID: [id number]
[2020-09-21 12:16] VITALS: TEMP 98.5
--- NOTE | 2020-09-21 17:23 | DIS ---
DATE OF ADMISSION: 09/16/2020 DATE OF DISCHARGE: 09/21/2020 PRIMARY CARE PROVIDER: Kristy Lowe. DISPOSITION: Discharged to inpatient hospice. FINAL DIAGNOSES: COVID pneumonia, acute hypoxic respiratory failure, acute renal failure, hypernatremia, lactic acidosis, toxic metabolic encephalopathy, type 2 diabetes, Alzheimer disease, hypothyroidism, hypertension. DISCHARGE MEDICATIONS: Per the [facility]. ALLERGIES: ARICEPT. PENDING AT TIME OF DISCHARGE: DNAR. DIET: As tolerated. AMBULATION: As tolerated. PENDING AT THE TIME OF DISCHARGE: Her cultures are negative at 48 hours, blood and urine. HOSPITAL COURSE: [facility]. She was a alf patient with Alzheimer disease. She had known COVID-19, nonverbal. She was tachycardic and on non-rebreather. She was admitted to [facility] requiring high-flow O2. Chronic diseases included Alzheimer's, diabetes, anxiety, high cholesterol, hypothyroidism, hypertension. During hospital stay, she was seen in consultation by Dr. Robbie Williamson, Pulmonology. Her consultation from Dr. Williamson noted with her acute respiratory failure, etc. Prognosis was dismal. Her admitting laboratory data; white count 8.2, hemoglobin 11.5, platelet count 145,000. D-dimer is 2.87. Blood gas showed a mild acidosis with a hypoxemia. Her sodium initially 156, potassium 4.0, BUN 46, creatinine 1.63. Lactic acid was 3.3, followup was 3.3 with IV fluids. Her renal failure remained. Her ferritin was markedly elevated at 1034. C-reactive protein was 19. The patient was treated with IV antibiotics, Accu-Cheks, sliding scale. Palliative Care became involved, today in consultation with her daughter. Decision was made for hospice care. It is planned shortly after she is admitted to hospice care that the BiPAP that is currently sustaining her will be removed. I have discussed with the daughter the possible scenarios of not breathing immediately, going for hours, possibly even days. She is comfortable with her decision in order to discharge to hospice has been placed in the computer. Follow up will be per hospice. Job ID: [id number] [id number]
== END 2020-09-21 16:45 | disposition hospice, inpatient (51) | DRG 871 ==
LOC: ERS 20:59 → OBSVTOIN 23:22 → 2SW 23:22 → IMCU/EMU 09-18 02:27
PROVIDERS: ADMIT Internal Medicine; ATTEND Internal Medicine
PROC: 5A09457 Assistance with Respiratory Ventilation, 24-96 Consecutive Hours, Continuous Positive Airway Pressure (ICD-10-PCS; principal; 2020-09-18)
DX: A41.89 Other specified sepsis (principal); U07.1 COVID-19; J12.89 Other viral pneumonia; J96.01 Acute respiratory failure with hypoxia; Z66 Do not resuscitate; Z51.5 Encounter for palliative care; G92 Toxic encephalopathy; I21.A1 Myocardial infarction type 2; E87.0 Hyperosmolality and hypernatremia; N17.9 Acute kidney failure, unspecified; E87.2 Acidosis; N30.00 Acute cystitis without hematuria; G30.9 Alzheimer's disease, unspecified; F02.80 Dementia in other diseases classified elsewhere, unspecified severity, without behavioral disturbance, psychotic disturbance, mood disturbance, and anxiety; R13.10 Dysphagia, unspecified; F41.9 Anxiety disorder, unspecified; E03.9 Hypothyroidism, unspecified; E78.00 Pure hypercholesterolemia, unspecified; E86.0 Dehydration; I10 Essential (primary) hypertension; E11.9 Type 2 diabetes mellitus without complications; D53.9 Nutritional anemia, unspecified; D69.6 Thrombocytopenia, unspecified; F32.9 Major depressive disorder, single episode, unspecified; E78.5 Hyperlipidemia, unspecified; Z78.1 Physical restraint status; Z79.899 Other long term (current) drug therapy; Z79.82 Long term (current) use of aspirin; Z79.890 Hormone replacement therapy
CPT/HCPCS: 36415; 36416; 36600; 51701; 71045; 80048; 80053; 81003; 81015; 82553; 82607; 82728; 82746; 82805; 83036; 83605; 83615; 83735; 84100; 84443; 84484; 85025; 85379; 85610; 85730; 86140; 86850; 86900; 86901; 87040; 87086; 87635; 93005; 94660; 94760; 96365; 96367; C9113; J0456; J0696; J1100; J1644; J1815; J2060; J2270; J3490; S0028; U0003

== ENCOUNTER 2020-09-21 17:19 | Inpatient (IN) | payer MEDICARE, MEDICAID ==
[2020-09-21] MEDS ORDERED: Lorazepam 2 MG/ML VIAL ONE (17:31)
[2020-09-21] MEDS ORDERED: Morphine 4 MG/ML VIAL ONE (17:31)
[2020-09-21] MEDS ORDERED: Morphine 4 MG/ML VIAL SLOW IVP PRN (17:39)
[2020-09-21] MEDS ORDERED: Ondansetron PF 4 MG/2 ML Vial IVP PRN (17:45)
[2020-09-21] MEDS ORDERED: Acetaminophen 650 MG Suppository PR PRN (17:45)
[2020-09-21] MEDS ORDERED: Scopolamine 1.5 mg/72 hour Patch TOP PRN (17:45)
[2020-09-21] MEDS ORDERED: Lorazepam 2 MG/ML VIAL SLOW IVP PRN (17:45)
== END 2020-09-21 18:05 | disposition expired | DRG 951 ==
LOC: IMCU/EMU 17:19
PROVIDERS: ADMIT Family Medicine; ATTEND Family Medicine
DX: Z51.5 Encounter for palliative care (principal); J12.89 Other viral pneumonia; U07.1 COVID-19; F02.81 Dementia in other diseases classified elsewhere, unspecified severity, with behavioral disturbance; N39.0 Urinary tract infection, site not specified; E87.0 Hyperosmolality and hypernatremia; G30.9 Alzheimer's disease, unspecified; Z66 Do not resuscitate; E78.00 Pure hypercholesterolemia, unspecified; E03.9 Hypothyroidism, unspecified; F41.9 Anxiety disorder, unspecified; E11.9 Type 2 diabetes mellitus without complications
CPT/HCPCS: J2060; J2270